=== PATIENT | female | born 1935 | race Caucasian/White ===

== ENCOUNTER → 2023-08-15 12:33 | Outpatient (REF) | payer MEDICARE, BC, SELFPAY | LOC: MRI 12:33 | PROVIDERS: ATTENDING PHYSICIAN Specialist; FAMILY PHYSICIAN Internal Medicine Geriatric Medicine | DX: M51.36 Other intervertebral disc degeneration, lumbar region (principal); M54.17 Radiculopathy, lumbosacral region; M47.816 Spondylosis without myelopathy or radiculopathy, lumbar region | CPT/HCPCS: 72148 ==